=== PATIENT | male | born 1960 | race Asian ===

== ENCOUNTER 2017-10-06 01:35 | Emergency (ER) | payer BC ==
[2017-10-06 01:40] VITALS: BP 147/103; PULSE 94; RESP 18; TEMP 98.1; O2SAT 99
[2017-10-06] MEDS ORDERED: TDAP ADULT 0.5 ML INJ (BOOSTRIX) IM ONE (01:54)
--- NOTE | 2017-10-06 02:06 | EDPHY ---
H & P Stated Complaint: LACERTION TO TOP OF HEAD,,, NO LOC Time Seen by Provider: 10/06/17 01:51 HPI/ROS: Chief complaint: Scalp laceration HPI: 57-year-old male was getting suitcases out of the truck of the car when the door came down the top of his head. He sustained a laceration in his left parietal region. No loss of consciousness. He does not recall his last tetanus. Denies headache. No nausea or vomiting. ROS: 10 point Review of Systems is negative except as noted in the HPI. Physical exam: General: Awake, alert, no acute distress Skin head: He has a 1 cm linear scalp laceration in the left parietal region with no active bleeding. There is no surrounding crepitus or step-offs. Pupils equal round reactive light Neck: Nontender, full range of motion without pain - Personal History Current Tetanus/Diphtheria Vaccine: No Current Tetanus Diphtheria and Acellular Pertussis (TDAP): No - Medical/Surgical History Hx Asthma: No Hx Chronic Respiratory Disease: No Hx Diabetes: No Hx Cardiac Disease: No Hx Renal Disease: No Hx Cirrhosis: No Hx Alcoholism: No Hx HIV/AIDS: No Hx Splenectomy or Spleen Trauma: No Other PMH: HTN, - Social History Smoking Status: Never smoked Constitutional: Initial Vital Signs Temperature (C) 36.7 C 10/06/17 01:37 Heart Rate 94 10/06/17 01:37 Respiratory Rate 18 10/06/17 01:37 Blood Pressure 147/103 H 10/06/17 01:37 O2 Sat (%) 99 10/06/17 01:37 O2 Delivery Mode Room Air Allergies/Adverse Reactions: acetaminophen [From Tylenol] Allergy (Verified 10/06/17 01:40) Home Medications: Medication Instructions Recorded Atorvastatin Calcium [Lipitor 10 10 mg PO DAILY 10/06/17 mg (*)] Losartan/Hydrochlorothiazide 10/06/17 [Hyzaar 100-12.5 Tablet] Medical Decision Making Procedures: Procedure: Laceration repair. Verbal consent was obtained from the patient. The 1 cm laceration on the scalp was not anesthetized after conversation with the patient. The wound was irrigated, draped and explored to its base with a gloved finger. There were no deep structures involved. No tendon injury was identified. The wound was repaired with 2 ghanshyam. The wound repair was uncomplicated. The procedure was performed by myself. - Data Points Medications Given: Discontinued Medications Diphtheria/Tetanus/Acell Pertussis (Boostrix) 0.5 ml IM .ONCE ONE Stop: 10/06/17 01:55 Last Admin: 10/06/17 02:01 Dose: 0.5 ml Departure - Departure Disposition: Home, Routine, Self-Care Clinical Impression: Scalp laceration Condition: Good Instructions: Diphtheria/Pertussis/Tetanus Vaccine (By injection), Laceration ( ED), Staple Care (ED) Additional Instructions: [place] need to be removed in 7-10 days., UA go to Urgent Care or your primary care physician for this. Return to the emergency department for increasing headache, confusion, nausea, vomiting, or any other concerns. Referrals: NONE *PRIMARY CARE P,. [Primary Care Provider] - As per Instructions
== END 2017-10-06 02:14 | disposition home or self-care (01) ==
PROC: 0HQ0XZZ Repair Scalp Skin, External Approach (ICD-10-PCS; principal; 2017-10-06)
DX: S01.01XA Laceration without foreign body of scalp, initial encounter (principal); I10 Essential (primary) hypertension; Z23 Encounter for immunization; W20.8XXA Other cause of strike by thrown, projected or falling object, initial encounter; Y99.8 Other external cause status; Y93.89 Activity, other specified